=== PATIENT | female | born 2000 | race Caucasian/White ===

== ENCOUNTER 2022-09-09 23:12 | Day surgery (SDC) | payer BC, OTHER ==
[2022-09-09 23:54] VITALS: BMI 52.3
[2022-09-10] MEDS ORDERED: hydrALAZINE 20 MG/ML VIAL SLOW IVP PRN (01:18)
[2022-09-10 01:48] LABS: Bilirubin Neg (Negative); Blood, Urine 25 (Negative); Clarity Clear (Clear); Glucose, Urine (Dipstick) Normal (Negative); Ketone, Urine Negative (Negative); Leukocyte Negative (Negative); Nitrite Negative (Negative); Protein, Urine (Dipstick) 15 mg/dl (Neg-Trace); Urobilinogen Normal mg/dL (Less than 2)
[2022-09-10 01:54] LABS: Bacteria/HPF None Seen HPF (None Seen); RBC/HPF 0-3 HPF (0-3); Squamous Epithelial 0-3 HPF (0-3); WBC/HPF 0-3 HPF (0-3)
== END 2022-09-10 04:00 | disposition home or self-care (01) ==
LOC: CSHLD/OP 23:12
PROVIDERS: ATTEND Obstetrics & Gynecology
DX: O47.03 False labor before 37 completed weeks of gestation, third trimester (principal); Z3A.34 34 weeks gestation of pregnancy; Z88.1 Allergy status to other antibiotic agents
CPT/HCPCS: 51701; 81003; 81015; 99283

== ENCOUNTER 2022-09-18 22:00 | Day surgery (SDC) | payer BC, OTHER ==
[2022-09-18 22:42] VITALS: BMI 44.6
[2022-09-18] MEDS ORDERED: hydrALAZINE 20 MG/ML VIAL SLOW IVP PRN (23:02)
== END 2022-09-18 23:10 | disposition home or self-care (01) ==
LOC: CSHLD/OP 22:00
PROVIDERS: ATTEND Obstetrics & Gynecology
DX: O99.891 Other specified diseases and conditions complicating pregnancy (principal); N89.8 Other specified noninflammatory disorders of vagina; Z3A.34 34 weeks gestation of pregnancy; Z88.0 Allergy status to penicillin; Z88.1 Allergy status to other antibiotic agents
CPT/HCPCS: 99282

== ENCOUNTER 2022-10-06 14:05 | Day surgery (SDC) | payer BC, OTHER ==
[2022-10-06] MEDS ORDERED: hydrALAZINE 20 MG/ML VIAL SLOW IVP PRN (15:19)
== END 2022-10-06 17:10 | disposition home or self-care (01) ==
LOC: CSHLD/OP 14:05
PROVIDERS: ATTEND Obstetrics & Gynecology
DX: O47.1 False labor at or after 37 completed weeks of gestation (principal); Z79.899 Other long term (current) drug therapy; Z88.0 Allergy status to penicillin; Z3A.38 38 weeks gestation of pregnancy

== ENCOUNTER 2022-10-08 21:27 | Day surgery (SDC) | payer BC, OTHER ==
[2022-10-08 22:06] VITALS: BMI 53.7
[2022-10-08] MEDS ORDERED: hydrALAZINE 20 MG/ML VIAL SLOW IVP PRN (23:38)
== END 2022-10-09 00:30 | disposition home or self-care (01) ==
LOC: CSHLD/OP 21:27
PROVIDERS: ATTEND Obstetrics & Gynecology
DX: O47.1 False labor at or after 37 completed weeks of gestation (principal); Z3A.38 38 weeks gestation of pregnancy; Z88.1 Allergy status to other antibiotic agents; Z88.0 Allergy status to penicillin

== ENCOUNTER 2022-10-19 18:00 | Inpatient (IN) | payer BC, OTHER ==
[~2022-10-19 18:00] MED LIST: Bupivacaine 0.25% HCL 30 ML VIAL ONE
[2022-10-19] MEDS ORDERED: Lidocaine 1% (PF) 30 ML VIAL SC PRN (19:27)
[2022-10-19] MEDS ORDERED: Carboprost 250 MCG/ML AMP IM PRN (19:27)
[2022-10-19] MEDS ORDERED: fentaNYL 50 mcg/mL 1 mL Vial SLOW IVP PRN (19:27)
[2022-10-19] MEDS ORDERED: Misoprostol 200 MCG TAB PR PRN (19:27)
[2022-10-19] MEDS ORDERED: hydrALAZINE 20 MG/ML VIAL SLOW IVP PRN (19:27)
[2022-10-19] MEDS ORDERED: Methylergonovine 0.2 MG/ML VIAL IM PRN (19:27)
[2022-10-19] MEDS ORDERED: Promethazine HCl 25 MG/ML VIAL IM PRN (19:27)
[2022-10-19] MEDS ORDERED: Diphenoxylate HCl/Atropine Tablet PO PRN ×2 (19:27)
[2022-10-19] MEDS ORDERED: Ondansetron PF 4 MG/2 ML Vial IVP PRN (19:27)
[2022-10-19] MEDS ORDERED: Acetaminophen/Codeine 30-300mg Tablet PO PRN ×2 (19:27)
[2022-10-19] MEDS ORDERED: Acetaminophen 500 MG TAB PO PRN (19:27)
[2022-10-19] MEDS ORDERED: Ibuprofen 800 MG TAB PO PRN (19:27)
[2022-10-19] MEDS ORDERED: HYDROcodone/Acetaminophen 5/325 mg Tablet PO PRN ×2 (19:27)
[2022-10-19] MEDS ORDERED: Zolpidem Tartrate 5 MG TAB PO PRN (19:27)
[2022-10-19] MEDS: Lactated Ringer's 1,000 ML IV SCH (19:28)
[2022-10-19] MEDS ORDERED: NS w/ Oxytocin 30 units 500 ML IV SCH (19:30)
[2022-10-19 19:46] VITALS: BMI 53.7
[2022-10-19 19:52] LABS: Hematocrit 36.3 % (34.9-44.5); Hemoglobin 12.4 g/dL (12.0-15.5); Mean Corpuscular HGB CONC 34.2 g/dL (32.0-36.0); Mean Corpuscular Hemoglobin 28.7 pg (27.0-33.0); Mean Platelet Volume 12.3 fl (7.4-10.4); Platelet Count 167 10x3/uL (150-450); RBC Distribution Width 13.5 % (11.5-14.5); Red Blood Cell (RBC) Count 4.32 10x6/uL (3.90-5.03); White Blood Cell (WBC) Count 9.4 10x3/uL (3.5-10.5)
[2022-10-19] MEDS: Misoprostol 100 MCG TAB VAG SCH ×2 (20:15→23:50)
[2022-10-19 20:25] LABS: Syphilis Antibody Nonreactive (Nonreactive); Syphilis Antibody Index 0.07 S/CO (<1.00 Non-Reactive)
[2022-10-19 20:26] LABS: HBSAg Index 0.19 S/CO (0-0.99); Hep B Surf Ag - L&D Non-Reactive S/CO (NonReactive)
[2022-10-20] MEDS: Lactated Ringer's 1,000 ML IV SCH ×2 (00:12→04:20)
[2022-10-20] MEDS: NS w/ Oxytocin 30 units 500 ML IV SCH ×2 (06:13→22:16)
[2022-10-20] MEDS ORDERED: fentaNYL/Ropivacaine Epidural 100 ML ONE (08:33)
[2022-10-20] MEDS ORDERED: ePHEDrine Sulfate 50 MG/10 ML VIAL SLOW IVP PRN (11:47)
[2022-10-20] MEDS ORDERED: Lactated Ringer's 500 ML IV PRN (11:47)
[2022-10-20] MEDS ORDERED: Ondansetron PF 4 MG/2 ML Vial IVP PRN (11:47)
[2022-10-20] MEDS ORDERED: diphenhydrAMINE 50 MG/ML VIAL IVP PRN (11:47)
[2022-10-20] MEDS ORDERED: Acetaminophen 325 MG TAB PO PRN (11:47)
[2022-10-20] MEDS ORDERED: Moisturizing Cream (Eucerin) 113 GM JAR TOP PRN (11:47)
[2022-10-20] MEDS ORDERED: Promethazine HCl 25 MG/ML VIAL IM PRN (11:47)
[2022-10-20] MEDS ORDERED: Naloxone HCl 0.4 mg/ml Vial IVP PRN ×2 (11:47)
[2022-10-20] MEDS ORDERED: Communication Order-Pharmacy FS SCH (12:00)
[2022-10-20] MEDS ORDERED: fentaNYL 2 mcg/Ropivacaine 0.2% Epidural 100 ML CADD EPIDURAL SCH (12:00)
[2022-10-20] MEDS ORDERED: diphenhydrAMINE 25 MG CAP PO PRN (22:49)
[2022-10-20] MEDS ORDERED: traMADol HCl 50 MG TAB PO PRN (22:49)
[2022-10-20] MEDS ORDERED: Boostrix 0.5 ML (Tdap) VIAL (>/=7 yrs of age) IM ONE (22:49)
[2022-10-20] MEDS ORDERED: Bisacodyl 10 MG SUPP PR PRN (22:49)
[2022-10-20] MEDS ORDERED: Lanolin Ointment 7 GM TUBE TOP PRN (22:49)
[2022-10-20] MEDS ORDERED: Benzocaine-Menthol 82.5 ML CAN TOP PRN (22:49)
[2022-10-20] MEDS ORDERED: Preparation H Ointment 28 GM TUBE PR PRN (22:49)
[2022-10-20] MEDS ORDERED: Milk Of Magnesia 30 ML UDCUP PO PRN (22:49)
[2022-10-20] MEDS ORDERED: hydrALAZINE 20 MG/ML VIAL SLOW IVP PRN (22:49)
[2022-10-20] MEDS: Ibuprofen 800 MG TAB PO SCH (23:21)
[2022-10-21] MEDS: Misoprostol 100 MCG TAB VAG SCH ×2 (07:08→07:09)
[2022-10-21] MEDS: Lactated Ringer's 1,000 ML IV SCH (07:09)
[2022-10-21] MEDS: Ferrous Sulfate 325 MG TAB PO SCH ×2 (08:20→15:44)
[2022-10-21] MEDS: Docusate 100 MG CAP PO SCH ×2 (08:32→20:54)
[2022-10-21] MEDS: Ibuprofen 800 MG TAB PO SCH ×3 (08:32→22:05)
[2022-10-21] MEDS: Prenatal Vitamin 1 TAB PO SCH (08:32)
[2022-10-22] MEDS: traMADol HCl 50 MG TAB PO PRN ×2 (00:11→11:38)
[2022-10-22] MEDS: Ibuprofen 800 MG TAB PO SCH (06:41)
[2022-10-22] MEDS: Ferrous Sulfate 325 MG TAB PO SCH (07:08)
[2022-10-22 07:42] VITALS: BP 143/72; TEMP 97.9
[2022-10-22] MEDS: Prenatal Vitamin 1 TAB PO SCH (08:23)
[2022-10-22] MEDS: Docusate 100 MG CAP PO SCH (08:23)
== END 2022-10-22 13:00 | disposition home or self-care (01) | DRG 807 ==
LOC: CSHLD 18:42 → CSHPP 10-20 22:40
PROVIDERS: ADMIT Obstetrics & Gynecology; ATTEND Obstetrics & Gynecology
PROC: 10E0XZZ Delivery of Products of Conception, External Approach (ICD-10-PCS; principal; 2022-10-20)
PROC: 0KQM0ZZ Repair Perineum Muscle, Open Approach (ICD-10-PCS; 2022-10-20)
PROC: 10907ZC Drainage of Amniotic Fluid, Therapeutic from Products of Conception, Via Natural or Artificial Opening (ICD-10-PCS; 2022-10-20)
PROC: 10H07YZ Insertion of Other Device into Products of Conception, Via Natural or Artificial Opening (ICD-10-PCS; 2022-10-20)
PROC: 3E0334Z Introduction of Serum, Toxoid and Vaccine into Peripheral Vein, Percutaneous Approach (ICD-10-PCS; 2022-10-20)
PROC: 3E033VJ Introduction of Other Hormone into Peripheral Vein, Percutaneous Approach (ICD-10-PCS; 2022-10-20)
DX: O99.214 Obesity complicating childbirth (principal); Z37.0 Single live birth; Z3A.39 39 weeks gestation of pregnancy; O26.893 Other specified pregnancy related conditions, third trimester; Z67.41 Type O blood, Rh negative; O70.1 Second degree perineal laceration during delivery; O99.893 Other specified diseases and conditions complicating puerperium; R60.0 Localized edema
CPT/HCPCS: 36415; 51702; 85027; 85461; 86780; 86850; 86900; 86901; 87340; 90384; 96372; J2001; J2405; J2590; J7120; S0020